=== PATIENT | female | born 1995 | race Caucasian/White ===

== ENCOUNTER 2024-04-07 11:31 | Outpatient (REF) | payer BC, SELFPAY ==
--- NOTE | 2024-04-07 11:20 | PAPFT_PTH ---
PATIENT: Renée Kebede LOC: [facility] U#:[id number] AGE/SX: 28/F ROOM: RE04/07/[address]: Jeannie Zavala NP : 1995 BED: DIS: 04/07/2024 SPEC #: [id number] RECD: 04/07/24 13:21 STATUS: JUSTIN DEAN #: [id number] [place]: 04/07/24 11:[address]: Jeannie Zavala NP DEPT: [facility] Cytology RECD BY: Pauline Cabral ENTERED: 04/07/24 13:21 SP TYPE: PAPFT BENEDICT DR: Dina Blanc, DO Tissues: 1 - CX/ENDOCX FOR PAP SMEARS Procedures: PAP THIN PREP/UVM Screening Comments: [id number]
== END 2024-04-07 11:32 | disposition home or self-care (01) ==
LOC: LBN 11:31
PROVIDERS: PCP Student in an Organized Health Care Education/Training Program; Visit Provider Nurse Practitioner Women's Health
DX: Z01.419 Encounter for gynecological examination (general) (routine) without abnormal findings (principal); Z30.41 Encounter for surveillance of contraceptive pills; Z12.4 Encounter for screening for malignant neoplasm of cervix
CPT/HCPCS: 88142; 87624

== ENCOUNTER 2025-03-18 13:28 | Outpatient (CLI) | payer BC, SELFPAY ==
--- NOTE | 2025-03-18 13:15 | RT.EKG_ITS ---
APPROVED REPORT Exam: Resting ECG Reason for Exam: Follow up EKG Patient Location: O HR:96 bpm ECG Measurements Heart Rate [address] 120 P 58 QRSd 89 QRS 71 QT 353 T 40 QTc 447 Conclusion Sinus rhythm...normal P axis, V-rate 50- 99 Normal Electrocardiogram
== END 2025-03-18 13:29 | disposition home or self-care (01) ==
LOC: DI.KIM 13:29
DX: R00.2 Palpitations (principal)
CPT/HCPCS: 93010

== ENCOUNTER 2025-03-22 03:55 | Outpatient (CLI) | payer BC, SELFPAY ==
[2025-03-22 12:39] LABS: Anion Gap 11.2 mmol/L (3-11); BUN 5 mg/dL (7-18); CO2 24.8 mmol/L (21.0-32.0); Calcium 9.0 mg/dL (8.5-10.1); Chloride 104 mmol/L (98-107); Estimated GFR 126.09 (mL/min/1.73m2); Glucose 95 mg/dL (74-106); Potassium 3.3 mmol/L (3.5-5.1); Sodium 140 mmol/L (136-145); TSH (W/Ref FT4) 0.93 uIU/mL (0.36-3.74)
== END 2025-03-22 03:56 | disposition home or self-care (01) ==
DX: R00.2 Palpitations (principal)
CPT/HCPCS: 36415; 80048; 84443

== ENCOUNTER 2025-03-22 10:51 | Outpatient (RCR) | payer BC, SELFPAY | END 2025-04-02 23:59 | disposition home or self-care (01) | LOC: CARDOPNVT 10:51 | DX: I49.9 Cardiac arrhythmia, unspecified (principal) | CPT/HCPCS: 93246 ==

== ENCOUNTER 2025-03-23 00:22 | Outpatient (CLI) | payer BC, SELFPAY ==
--- NOTE | 2025-03-23 13:30 | DI.US_ITS ---
APPROVED REPORT EXAM: Comprehensive 2D, Doppler, and color-flow Echocardiogram Patient Location: Out-Patient Senior Tax Specialist: Katiuska Houston RDCS (AE) Indications: Assess for marfan's anatomical abnormalities, Fluttering sensation, palpitations. Other Information Study Quality: Adequate. Technically limited study due to body habitus. Conclusion Normal left ventricular wall thickness and chamber size. EF is 60%. Wall motion is normal Normal right ventricular size and function Both atria are normal in size There are no structural valvular abnormalities Trace mitral and tricuspid regurgitation Estimated right ventricular systolic pressure is 30 mmHg Wall motion Left Ventricle The left ventricle is normal size. The left ventricular systolic function is normal. The left ventricular ejection fraction is within the normal range. There is normal left ventricular wall thickness. There is normal LV segmental wall motion. There is no ventricular septal defect visualized. LVEF is 60%. Right Ventricle The right ventricle is normal size. The right ventricular systolic function is normal. Atria The left atrium size is normal. The right atrium size is normal. The interatrial septum is intact with no evidence for an atrial septal defect. Aortic Valve The aortic valve is normal in structure. Aortic valve is trileaflet. There is no aortic valvular stenosis. No aortic regurgitation is present. Mitral Valve The mitral valve is normal in structure. No evidence of mitral valve stenosis. Trace mitral regurgitation. Tricuspid Valve The tricuspid valve is normal in structure. There is no tricuspid valve stenosis. Trace tricuspid regurgitation. The RVSP is 29.9 mmHg. Pulmonic Valve The pulmonary valve is normal in structure. There is no pulmonic valvular stenosis. There is no pulmonic valvular regurgitation. Great Vessels The aortic root is normal in size. Ascending aorta is not well visualized. Aortic arch is normal in caliber. IVC is normal in size and collapses >50% with inspiration. Pericardium There is no pericardial effusion. 2D Dimensions IVSD d PLAX 0.50 cm F: 0.6-1.0 Ao Root d 2.71 cm F: 2.7 - 3.3 LVPW d PLAX 0.55 cm F: 0.6 - 1.0 LVID d PLAX 4.50 cm F: 3.8 - 5.2 LVDs 3.10 cm F: 2.2 - 3.5 LV EF Teichholz 58.2 % FS 30.53 % LV EDV (Teich) 90.5 mL LV ESV (Teich) 37.9 mL M-Mode TAPSE 1.63 cm (M/F) >1.7 Auto EF LV EDV A4C 70.4 mL LV EDV A2C 121.0 mL LV EDV BP 94.6 mL LV ESV A4C 28.4 mL LV ESV A2C 47.8 mL LV ESV BP 37.6 mL LVEF(%) A4C 59.6 % LVEF(%) A2C 60.5 % LVEF(%) BP 60.3 % LV SV A4C 41.9 ml LV SV A2C 73.2 ml LV SV BP 57.0 ml LV CO A4C 4.5 L/min LV CO A2C 7.1 L/min LV CO BP 5.8 L/min HR A4C 106.52 BPM HR A2C 96.52 BPM LV EDV Index (BP) LA Volume LA Length A4C 3.7 cm LA Length A2C 4.4 cm LA Area A4C s 11.22 cm2 LA Area A2C s 11.63 cm2 LA Vol A4C A-L 29.03 mL LA Vol A2C A-L 25.96 mL LA Vol Biplane A-L 30.1 mL LA Vol/BSA A4C A-L LA Vol/BSA A2C A-L LA Vol/BSA BP A-L 17.5 mL/m2 LA Vol A4C MOD 27.6 mL LA Vol A2C MOD 23.9 mL LA Vol BP MOD 27.9 mL RA Volume RA Area A4C 8.4 cm2 RA ESV A4C (A-L) 18.4mL RA Vol/BSA A4C A-L RA Length A4C 3.2 cm RA ESV A4C (MOD) 17.2mL LV Diastology MV E' medial 0.113 (>0.07 m/s) MV E Vmax 1.01 (0.4-1.3 m/s) MV E/E' MED 8.93 (<14) MV A Vmax 0.70 (0.4-1.3 m/s) MV E' lateral 0.211 (>0.1 m/s) E/A Ratio 1.4 MV E/E' LAT 4.78 (<14) MV E' Average 0.162 m/s MV E/E'(average) 6.23 Aortic Valve AoV Vmax 1.24 m/s LVOT Vmax 1.19 m/s AoV Peak Grad 6.1 mmHg LVOT Peak Grad 5.6 mmHg AoV Area (Vmax) 3.09 cm2 LVOT VTI 0.227 m AoV VTI 0.234 m LVOT Mean Grad 3.3 mmHg AoV Mean Isaac. 0.92 m/s LVOT SV 73.19 mL AoV Mean Grad 3.8 mmHg LVOT Diam s 2.00 cm AoV Area (VTI) 3.13 cm2 AV Regurg Peak Gr. 6.15 mmHg Velocity Ratio 0.96 Mitral Valve MV DT 167 (160-240 msec) Pulmonary Valve PV Vmax 1.15 (0.5-1.5 m/s) RVOT Vmax 0.91 m/s PV Peak Grad 5.3 mmHg RVOT Peak Gr. 3.3 mmHg PV Mean Isaac 0.82 m/s RVOT VTI 0.184 m PV Mean Grad 3.0 mmHg RVOT Mean Gr. 1.9 mmHg Tricuspid Valve RA Pressure 3.00 mmHg TR Vmax 2.59 m/s TV S' 0.13 m/s TR Peak Grad 26.9 mmHg RVSP (TR) 29.9 mmHg
== END 2025-03-23 00:42 ==
DX: R00.2 Palpitations (principal); Q87.40 Marfan syndrome, unspecified
CPT/HCPCS: 93306

== ENCOUNTER 2025-04-13 07:23 | Outpatient (CLI) | payer BC, SELFPAY ==
--- NOTE | 2025-04-13 09:00 | W.CARDEVENT ---
Date of service: 04/13/25 Time of Service: 09:00 Cardiac Event Recorder Referring Provider:: Caleb Anthony Indications:: Cardiac arrhythmia Cardiac Event Note: This is a cardiac event monitor. Patient was monitored for 13 days and 23 hours Rhythm throughout was sinus with an average heart rate of 80. Minimum was 46, maximum 177 There were very rare isolated ventricular ectopic beats There were very rare isolated atrial premature beats There was no atrial fibrillation, no high-grade AV block, no pauses greater than 3 seconds Reported symptoms all correlated to sinus rhythm
== END 2025-04-13 07:24 | disposition home or self-care (01) ==
LOC: CARDOPNVT 07:23
PROVIDERS: Visit Provider Internal Medicine Cardiovascular Disease
DX: I49.9 Cardiac arrhythmia, unspecified (principal)
CPT/HCPCS: 93248